=== PATIENT | male | born 1980 | race Caucasian/White ===

== ENCOUNTER 2022-12-02 10:57 | Emergency (ER) | payer OTHER ==
[~2022-12-02] VITALS: Ht 177.8 cm; Wt 79.2 kg
[2022-12-02 13:46] VITALS: BP 129/75
== END 2022-12-02 13:48 | disposition home or self-care (01) ==
LOC: M ED 10:57
DX: S33.5XXA Sprain of ligaments of lumbar spine, initial encounter (principal); S13.4XXA Sprain of ligaments of cervical spine, initial encounter; V49.40XA Driver injured in collision with unspecified motor vehicles in traffic accident, initial encounter; M25.78 Osteophyte, vertebrae; M43.23 Fusion of spine, cervicothoracic region